=== PATIENT | female | born 1980 | race African-American/Black ===

== ENCOUNTER 2017-08-12 19:39 | Emergency (ER) | payer SELFPAY ==
[2017-08-12] MEDS ORDERED: Acetaminophen 500 MG TAB ONE (20:31)
[2017-08-12] MEDS ORDERED: Benzonatate 100 MG CAP ONE (20:31)
[2017-08-12] MEDS ORDERED: Ketorolac Tromethamine 30 MG/ML VIAL ONE (20:31)
[2017-08-12] MEDS ORDERED: Oseltamivir 75 MG CAP ONE (20:31)
[2017-08-12] MEDS ORDERED: Ondansetron ODT 4 MG TAB ONE (20:31)
== END 2017-08-12 20:57 | disposition home or self-care (01) ==
LOC: MADERS 19:39
DX: J10.1 Influenza due to other identified influenza virus with other respiratory manifestations (principal)
CPT/HCPCS: 87081; 87430; 96372; J1885; Q0162

== ENCOUNTER 2022-02-28 22:42 | Emergency (ER) | payer BC, SELFPAY ==
[2022-02-28 23:50] LABS: #Basophils 0.1 thou/uL (0.0-0.2); #Eosinphils 0.3 thou/uL (0.0-0.7); #Lymphocytes 2.9 thou/uL (1.20-3.40); #Monocytes 0.6 thou/uL (0.11-0.59); #Neutrophils 5.1 thou/uL (1.40-6.50); %Basophils 1.5 % (0.0-1.0); %Eosinophils 3.1 % (0.0-10.0); %Lymphocytes 32.2 % (21.0-51.0); %Monocytes 6.3 % (0.0-10.0); %Neutrophils 56.9 % (42.0-75.0); Hemoglobin 13.6 g/dL (12.0-16.0); Mean Corpuscular HGB CONC 31.2 g/dL (32.0-36.0); Mean Corpuscular Hemoglobin 28.1 pg (27.0-31.0); Mean Platelet Volume 8.5 fL (7.4-10.4); Platelet Count 315 thou/uL (130-400); RBC Distribution Width 12.7 % (11.5-14.5); Red Blood Cell (RBC) Count 4.86 mill/uL (4.20-5.40)
[2022-02-28] MEDS ORDERED: Nitroglycerin 0.4 MG TAB 1 EACH ONE (23:50)
[2022-03-01] MEDS ORDERED: Ketorolac Tromethamine 30 MG/ML VIAL ONE (00:09)
[2022-03-01] MEDS ORDERED: Ondansetron PF 4 MG/2 ML Vial ONE (00:09)
[2022-03-01 00:10] LABS: BHCG - Serum Negative (NEGATIVE); Pregs Control Background? CLEAR/WHITE (CLR/WHITE); Pregs Control Bar Appear? YES (CONTROL BAR)
[2022-03-01] MEDS ORDERED: Lidocaine Viscous Sol 2% 15 ml UD Cup ONE (00:10)
[2022-03-01] MEDS ORDERED: Mag-Al Plus 1200 MG/1200 MG/120 MG/30 ML UDCUP ONE (00:10)
[2022-03-01] MEDS ORDERED: Lactated Ringer's 1,000 ML ONE (00:10)
[2022-03-01 00:13] LABS: ALT (SGPT) 14 U/L (8-55); AST (SGOT) 11 U/L (5-34); Albumin 4.4 g/dL (3.5-5.0); Alkaline Phosphatase 95 U/L (40-110); Anion Gap 14 mmol/L (10-20); BUN (Urea Nitrogen) 10 mg/dL (7.0-18.7); Bilirubin, Total 0.3 mg/dL (0.2-1.2); Calc. Creatinine Clearance 0 mL/min (70-130); Calcium 9.4 mg/dL (7.8-10.44); Carbon Dioxide 24 mmol/L (22-29); Chloride 106 mmol/L (98-107); Estimated GFR 74; Globulin 3.1 g/dL (2.4-3.5); Glucose 96 mg/dL (70-105); Potassium 3.9 mmol/L (3.5-5.1); Protein, Total 7.5 g/dL (6.0-8.3); Sodium 140 mmol/L (136-145)
[2022-03-01 03:02] LABS: Troponin I Less than 0.010 ng/mL (< 0.028)
== END 2022-03-01 03:17 | disposition home or self-care (01) ==
LOC: MADERS 22:42
DX: R07.89 Other chest pain (principal)
CPT/HCPCS: 71045; 80053; 84484; 84703; 85025; 93005; 94760; 96374; 96375; J1885; J2405; J7120